=== PATIENT | female | born 1960 | race Caucasian/White ===

== ENCOUNTER 2018-02-03 13:25 | Emergency (ER) | payer MEDICARE, MEDICAID ==
[2018-02-03] MEDS ORDERED: Cyclobenzaprine 10 MG Tab PO ONE (13:26)
[2018-02-03 13:36] VITALS: BP 132/92
--- NOTE | 2018-02-03 13:44 | EDM.PDOC ---
ED HPI GENERAL MEDICAL PROBLEM - General Chief Complaint: Back Pain or Injury Stated Complaint: back pain s/p fall Time Seen by Provider: 02/03/18 13:35 Source of Information: Reports: Patient History Limitations: Reports: No Limitations - History of Present Illness INITIAL COMMENTS - FREE TEXT/NARRATIVE: was moving a couch into a storage unit and was walking backwards and didn't get her foot up high enough and it got caught on the step and she fell backwards onto her butt. She is having pain in the lumbar spine area. No pain or numbness or tingling noted down her legs. She denies pain to any other area of her back. No other injury when falling noted. Has not taken anything for the pain at this time. Onset: Today Location: Reports: Back Quality: Reports: Sharp, Stabbing Improves with: Reports: None Worsens with: Reports: Movement Associated Symptoms: Reports: No Other Symptoms Lower Back Pain Score (Numeric/FACES): 10 - Related Data Allergies Allergy/AdvReac Type Severity Reaction Status Date / Time No Known Allergies Allergy Verified 02/03/18 13:38 Home Meds: Home Meds Budesonide/Formoterol [Symbicort 160-4.5 MCG] 1 puff INH BID 01/31/15 [History] FLUoxetine [PROzac] 20 mg PO BID 01/31/15 [History] Fluticasone Propionate [Flonase] 2 inh NS DAILY 01/31/15 [History] Levalbuterol HCl [Xopenex] 1.25 mg NEB Q6H PRN 01/31/15 [History] Levothyroxine [Synthroid] 50 mcg PO ACBREAKFAST 01/31/15 [History] Omeprazole 20 mg PO DAILY 01/31/15 [History] Solifenacin Succinate [Vesicare] 10 mg PO DAILY 02/03/18 [History] buPROPion [Wellbutrin] 100 mg PO DAILY 02/03/18 [History] busPIRone HCl [Buspirone HCl] 7.5 mg PO BID 02/03/18 [History] traMADol HCl [Tramadol HCl] 1 - 2 tab PO Q6H PRN 02/03/18 [History] Past Medical History HEENT History: Reports: Hard of Hearing Psychiatric History: Reports: Depression Social & Family History - Tobacco Use Smoking Status *Q: Former Smoker Years of Tobacco use: 34 Month/Year Tobacco Last Used: October - Alcohol Use Days Per Week of Alcohol Use: 0 - Recreational Drug Use Recreational Drug Use: No ED ROS GENERAL - Review of Systems Review Of Systems: See Below Constitutional: Reports: No Symptoms HEENT: Reports: No Symptoms Cardiovascular: Reports: No Symptoms GI/Abdominal: Reports: No Symptoms Musculoskeletal: Reports: Back Pain Skin: Reports: No Symptoms Neurological: Reports: No Symptoms ED EXAM,LOWER BACK PAIN/INJURY - Physical Exam Exam: See Below Exam Limited By: No Limitations General Appearance: Alert, WD/WN, Moderate Distress Head: Atraumatic Neck: Normal Inspection, Supple, Non-Tender Respiratory/Chest: No Respiratory Distress, Lungs Clear, Normal Breath Sounds Cardiovascular: Regular Rate, Rhythm GI/Abdominal: Normal Bowel Sounds, Soft, Non-Tender Back Exam: Paraspinal Tenderness, Vertebral Tenderness (lumbar area.) Extremities: Normal Inspection, Normal Range of Motion, Non-Tender, No Pedal Edema, Normal Capillary Refill Neurological: Alert, Oriented x 3 Psychiatric: Normal Affect Skin Exam: Warm, Dry, Intact Course - Vital Signs Last Recorded V/S: Last Vital Signs Temp 96.3 F 02/03/18 13:31 Pulse 84 02/03/18 13:31 Resp 22 H 02/03/18 13:31 BP 132/92 H 02/03/18 13:31 Pulse Ox 99 02/03/18 13:31 - Orders/Labs/Meds Orders: Active Orders 24 hr Category Date Time Status Lumbar Spine 2 or 3V [CR] Stat Exams 02/03/18 13:39 Taken Meds: Medications Discontinued Medications Generic Name Dose Route Start Last Admin Trade Name Ayse PRN Reason Stop Dose Admin Cyclobenzaprine HCl 1 packet 02/03/18 14:15 02/03/18 14:19 Take Home: Cyclobenzaprine 10 Mg, 4 Tab Pack PO 02/03/18 14:16 1 packet ONETIME ONE Administration Fentanyl 50 mcg 02/03/18 13:52 02/03/18 14:10 Sublimaze IM 02/03/18 13:53 50 mcg ONETIME ONE Administration Orphenadrine Citrate 60 mg 02/03/18 14:00 02/03/18 14:05 Norflex IM 02/03/18 14:01 60 mg NOW ONE Administration - Re-Assessments/Exams Free Text/Narrative Re-Assessment/Exam: 02/03/18 14:12 Discussed xrays with pt. She has Tramadol at home from previous injury. Will use those for pain and will give muscle relaxants also. Departure - Departure Time of Disposition: 14:13 Disposition: Home, Self-Care 01 Condition: Good Clinical Impression: Traumatic compression fracture of L3 lumbar vertebra Qualifiers: Encounter type: initial encounter Fracture type: closed Qualified Code(s): S32.030A - Wedge compression fracture of third lumbar vertebra, initial encounter for closed fracture - Discharge Information Instructions: Muscle Strain, [id number], Back Pain, Adult, [id number] Referrals: Halie Carmona PA-C [Primary Care Provider] - Forms: ED Department Discharge Additional Instructions: Use the Tramadol that you have at home for pain as needed. Flexeril 10 mg twice a day for spasms as needed. You did get shot in the ER about 2 so do not repeat until this evening Will call in the morning after radiologist reads the image for further instructions. - Problem List & Annotations (1) Traumatic compression fracture of L3 lumbar vertebra SNOMED Code(s): 558714308 Code(s): S32.030A - WEDGE COMPRESSION FRACTURE OF THIRD LUMBAR VERTEBRA, INIT Status: Acute Priority: High Qualifiers: Encounter type: initial encounter Fracture type: closed Qualified Code(s) : S32.030A - Wedge compression fracture of third lumbar vertebra, initial encounter for closed fracture - Problem List Review Problem List Initiated/Reviewed/Updated: Yes - My Orders Last 24 Hours: My Active Orders 02/03/18 13:39 Lumbar Spine 2 or 3V [CR] Stat - Assessment/Plan Last 24 Hours: My Active Orders 02/03/18 13:39 Lumbar Spine 2 or 3V [CR] Stat
[2018-02-03] MEDS ORDERED: fentaNYL 100 MCG/2 ML SDV IM ONE (13:52)
[2018-02-03] MEDS ORDERED: Take Home: Cyclobenzaprine 10 MG Tab, 4 Tab Pack PO ONE (14:15)
== END 2018-02-03 14:25 | disposition home or self-care (01) ==
LOC: CC.ED 13:25
DX: S32.039A Unspecified fracture of third lumbar vertebra, initial encounter for closed fracture (principal); Z87.891 Personal history of nicotine dependence; Z79.899 Other long term (current) drug therapy; X50.3XXA Overexertion from repetitive movements, initial encounter; W18.39XA Other fall on same level, initial encounter
CPT/HCPCS: 72100; 96372; 99283; A9270-GY; J2360; J3010

== ENCOUNTER 2018-11-20 23:50 | Emergency (ER) | payer MEDICARE, MEDICAID ==
[2018-11-20 23:55] VITALS: BP 137/85
[2018-11-21] MEDS ORDERED: Lidocaine 1% 20 ML MDV ONE (00:03)
[2018-11-21] MEDS ORDERED: cefTRIAXone 1 GM Vial IM ONE (00:08)
[2018-11-21] MEDS ORDERED: Ketorolac 60 MG/2 ML SDV IM ONE (00:09)
[2018-11-21] MEDS ORDERED: Lidocaine 1% 30 ML SDV INJECT ONE (00:11)
--- NOTE | 2018-11-21 00:15 | EDM.PDOC ---
ED HPI GENERAL MEDICAL PROBLEM - General Chief Complaint: Upper Extremity Injury/Pain Stated Complaint: R)thumb pain and swelling Time Seen by Provider: 11/21/18 00:05 Source of Information: Reports: Patient History Limitations: Reports: No Limitations - History of Present Illness INITIAL COMMENTS - FREE TEXT/NARRATIVE: States that she pushed a hang nail back around her right thumb 2 days ago and now it is swollen and tender and throbs. Took tylenol earlier today and ths evening she took 2 tramadol and it still hurts. She presents to the ER for evaluation for this. She has not soaked it. No fever with it. Onset: Gradual Location: Reports: Other (right thumb) Quality: Reports: Throbbing Associated Symptoms: Reports: No Other Symptoms Treatments SECRET SERVICE AGENT: Reports: Acetaminophen Right Finger-Thumb Pain Score (Numeric/FACES): 9 - Related Data Allergies Allergy/AdvReac Type Severity Reaction Status Date / Time No Known Allergies Allergy Verified 11/20/18 23:55 Home Meds: Home Meds Budesonide/Formoterol [Symbicort 160-4.5 MCG] 1 puff INH BID 01/31/15 [History] FLUoxetine [PROzac] 20 mg PO BID 01/31/15 [History] Fluticasone Propionate [Flonase] 2 inh NS DAILY 01/31/15 [History] Levalbuterol HCl [Xopenex] 1.25 mg NEB Q6H PRN 01/31/15 [History] Levothyroxine [Synthroid] 50 mcg PO ACBREAKFAST 01/31/15 [History] Omeprazole 20 mg PO DAILY 01/31/15 [History] Solifenacin Succinate [Vesicare] 10 mg PO DAILY 02/03/18 [History] buPROPion [Wellbutrin] 100 mg PO DAILY 02/03/18 [History] busPIRone HCl [Buspirone HCl] 7.5 mg PO BID 02/03/18 [History] traMADol HCl [Tramadol HCl] 1 - 2 tab PO Q6H PRN 02/03/18 [History] Past Medical History HEENT History: Reports: Hard of Hearing Respiratory History: Reports: Asthma Psychiatric History: Reports: Depression - Past Surgical History Female Surgical History: Reports: Section, Hysterectomy Endocrine Surgical History: Reports: Thyroidectomy Social & Family History - Family History Family Medical History: Noncontributory - Tobacco Use Smoking Status *Q: Never Smoker - Caffeine Use Caffeine Use: Reports: Coffee - Recreational Drug Use Recreational Drug Use: No Review of Systems - Review of Systems Review Of Systems: See Below Constitutional: Denies: Chills, Fever Skin: Reports: Other (see HPI) ED EXAM, GENERAL - Physical Exam Exam: See Below Exam Limited By: No Limitations General Appearance: Alert, WD/WN Extremities: Other (right thumb is swollen and tender to touch. there is a pus collection noted on the lateral side of the thumb. No open or draining area at this time.) Neurological: Alert, Oriented Skin Exam: Warm, Dry, Intact Course - Vital Signs Last Recorded V/S: Last Vital Signs Temp 98.9 F 11/20/18 23:52 Pulse 81 11/20/18 23:52 Resp 20 11/20/18 23:52 BP 137/85 11/20/18 23:52 Pulse Ox 96 11/20/18 23:52 - Orders/Labs/Meds Orders: Active Orders 24 hr Category Date Time Status Ketorolac [Toradol] Med 11/21/18 00:09 Once 60 mg IM ONETIME ONE cefTRIAXone [Rocephin] Med 11/21/18 00:08 Once 1 gm IM ONETIME ONE Departure - Departure Time of Disposition: 00:15 Disposition: Home, Self-Care 01 Clinical Impression: Paronychia of finger of right hand - Discharge Information *PRESCRIPTION DRUG MONITORING PROGRAM REVIEWED*: Not Applicable *COPY OF PRESCRIPTION DRUG MONITORING REPORT IN PATIENT CAROLANN: Not Applicable Instructions: Paronychia Additional Instructions: soak in warm soap water or epsom salt to help with swelling and comfort tylenol or advil as needed for discomfort ice to finger for swelling - Problem List & Annotations (1) Paronychia of finger of right hand SNOMED Code(s): 027439173 Code(s): L03.011 - CELLULITIS OF RIGHT FINGER Status: Acute - Problem List Review Problem List Initiated/Reviewed/Updated: Yes - My Orders Last 24 Hours: My Active Orders 11/21/18 00:08 cefTRIAXone [Rocephin] 1 gm IM ONETIME ONE 11/21/18 00:09 Ketorolac [Toradol] 60 mg IM ONETIME ONE - Assessment/Plan Last 24 Hours: My Active Orders 11/21/18 00:08 cefTRIAXone [Rocephin] 1 gm IM ONETIME ONE 11/21/18 00:09 Ketorolac [Toradol] 60 mg IM ONETIME ONE
[2018-11-21] MEDS ORDERED: Lidocaine 1% 20 ML MDV INJECT ONE (00:22)
== END 2018-11-21 00:36 | disposition home or self-care (01) ==
LOC: CC.ED 23:50
DX: L03.011 Cellulitis of right finger (principal); F32.9 Major depressive disorder, single episode, unspecified; Z79.899 Other long term (current) drug therapy
CPT/HCPCS: 96372; 99282; 99283; J0696; J1885

== ENCOUNTER 2020-05-01 14:52 | Emergency (ER) | payer MEDICARE, MEDICAID ==
[2020-05-01] MEDS ORDERED: Ketorolac 10 MG Tab PO ONE (14:53)
[2020-05-01 14:56] VITALS: BP 115/71; PULSE 80
[2020-05-01] MEDS ORDERED: Ketorolac 60 MG/2 ML SDV IM ONE (15:25)
--- NOTE | 2020-05-01 15:31 | EDM.PDOC ---
ED HPI GENERAL MEDICAL PROBLEM - General Chief Complaint: General Stated Complaint: left wrist pain post carpel tunnel surgery Time Seen by Provider: 05/01/20 15:15 Source of Information: Reports: Patient History Limitations: Reports: No Limitations - History of Present Illness INITIAL COMMENTS - FREE TEXT/NARRATIVE: Patient presents today with increased left wrist pain following carpal tunnel surgery. She states she has had uncontrolled pain since surgery. Had switched her from [place] to percocet and is still not getting relief. States feels like wrist is broke as she has pain across the top of her wrist. Notes bruising and numbness in the palm of her hand. No redness. No swelling. Has not injured wrist. Had previous carpal tunnel on the right wrist and states had no complications nor pain like this. Did call down to [place] today but states was advised to be seen in ER as surgeon wasn't available. Onset: Gradual Duration: Day(s):, Getting Worse Location: Reports: Upper Extremity, Left Quality: Reports: Sharp, Throbbing Severity: Severe Improves with: Reports: Rest Worsens with: Reports: Movement Associated Symptoms: Reports: No Other Symptoms Treatments CYTOLOGY TECHNOLOGIST: Reports: NSAIDS, Other Medication(s) (percocet, norco) Left Lower Hand Pain Score (Numeric/FACES): 8 - Related Data Allergies Allergy/AdvReac Type Severity Reaction Status Date / Time No Known Allergies Allergy Verified 11/20/18 23:55 Home Meds: Home Meds Budesonide/Formoterol [Symbicort 160-4.5 MCG] 1 puff INH BID 01/31/15 [History] FLUoxetine [PROzac] 20 mg PO BID 01/31/15 [History] Fluticasone Propionate [Flonase] 2 inh NS DAILY 01/31/15 [History] Levalbuterol HCl [Xopenex] 1.25 mg NEB Q6H PRN 01/31/15 [History] Levothyroxine [Synthroid] 50 mcg PO ACBREAKFAST 01/31/15 [History] Omeprazole 20 mg PO DAILY 01/31/15 [History] buPROPion [Wellbutrin] 100 mg PO DAILY 02/03/18 [History] busPIRone HCl [Buspirone HCl] 7.5 mg PO BID 02/03/18 [History] Past Medical History HEENT History: Reports: Hard of Hearing Other HEENT History: wears bilateral hearing aides Respiratory History: Reports: Asthma Psychiatric History: Reports: Depression Oncologic (Cancer) History: Reports: Other (See Below) Other Oncologic History: hx of breast cancer-lumpectomy and lymph nodes removed along with radiation treatment Dermatologic History: Reports: Eczema Other Dermatologic History: back of neck - Past Surgical History Female Surgical History: Reports: Section, Hysterectomy Endocrine Surgical History: Reports: Thyroidectomy Oncologic Surgical History: Reports: Biopsy of Breast, Lumpectomy Social & Family History - Family History Family Medical History: Noncontributory - Tobacco Use Smoking Status *Q: Former Smoker Used Tobacco, but Quit: Yes Month/Year Tobacco Last Used: 2 - Caffeine Use Caffeine Use: Reports: Coffee - Recreational Drug Use Recreational Drug Use: No ED ROS GENERAL - Review of Systems Review Of Systems: Comprehensive ROS is negative, except as noted in HPI. ED EXAM, GENERAL - Physical Exam Exam: See Below Exam Limited By: No Limitations General Appearance: Alert, WD/WN, No Apparent Distress Extremities: Other (left wrist incision is clean and dry. Sutures intact. No erythema or swelling. Does have ecchymosis to the palm of her hand. Pain with range of motion of her wrist. ). No: Joint Swelling, Increased Warmth Skin Exam: Warm, Dry, Ecchymosis, Wound/Incision. No: Erythema Course - Vital Signs Last Recorded V/S: Last Vital Signs Temp 98.7 F 05/01/20 14:54 Pulse 80 05/01/20 14:54 Resp 20 05/01/20 14:54 BP 115/71 05/01/20 14:54 Pulse Ox - Orders/Labs/Meds Orders: Active Orders 24 hr Category Date Time Status Wrist Comp Min 3V Lt [CR] Stat Exams 05/01/20 15:26 Ordered Meds: Medications Discontinued Medications Generic Name Dose Route Start Last Admin Trade Name Freq PRN Reason Stop Dose Admin Ketorolac Tromethamine 60 mg 05/01/20 15:25 Toradol IM 05/01/20 15:26 ONETIME ONE - Re-Assessments/Exams Free Text/Narrative Re-Assessment/Exam: 05/01/20 15:33 Xrays are negative. Discussed with patient. Departure - Departure Time of Disposition: 15:34 Disposition: Home, Self-Care 01 Condition: Good Clinical Impression: S/P carpal tunnel release - Discharge Information *PRESCRIPTION DRUG MONITORING PROGRAM REVIEWED*: No *COPY OF PRESCRIPTION DRUG MONITORING REPORT IN PATIENT CAROLANN: No Instructions: Open Carpal Tunnel Release, Care After, How to Use Cold Therapy, [id number] Forms: ED Department Discharge Additional Instructions: 1. Rest 2. Ice to the area as needed 3. Elevate as needed 4. Alternate toradol tablets with percocet every 3 hours for the pain 5. Contact Dr. Card's office on Sunday am for recheck Sepsis Event Note (ED) - Evaluation Sepsis Screening Result: No Definite Risk - Focused Exam Vital Signs: Vital Signs Temp Pulse Resp BP 05/01/20 14:54 98.7 F 80 20 115/71 - My Orders Last 24 Hours: My Active Orders 05/01/20 15:26 Wrist Comp Min 3V Lt [CR] Stat - Assessment/Plan Last 24 Hours: My Active Orders 05/01/20 15:26 Wrist Comp Min 3V Lt [CR] Stat
[2020-05-01] MEDS ORDERED: Take Home: Ketorolac 10 MG Tab, 4 Tab Pack PO ONE (15:33)
== END 2020-05-01 15:42 | disposition home or self-care (01) ==
LOC: CC.ED 14:52
DX: M96.840 Postprocedural hematoma of a musculoskeletal structure following a musculoskeletal system procedure (principal); J45.909 Unspecified asthma, uncomplicated; F32.9 Major depressive disorder, single episode, unspecified; Z90.710 Acquired absence of both cervix and uterus; Z98.890 Other specified postprocedural states; Z87.891 Personal history of nicotine dependence; Z79.899 Other long term (current) drug therapy
CPT/HCPCS: 73110; 96372; 99283; A9270; J1885

== ENCOUNTER → 2020-08-06 | Day surgery (SDC) | payer MEDICARE, MEDICAID ==
[~2020-08-06] MED LIST: Ketamine 200 MG/20 ML MDV ONE; Lactated Ringers 1,000 ML IV SCH; Midazolam 1 MG/ML 2 ML SDV ONE; Phenylephrine 1% 10 MG/ML SDV ONE; Propofol 200 MG/20 ML SDV ONE; fentaNYL 100 MCG/2 ML SDV ONE
[2020-08-06 11:07] VITALS: BP 116/55; PULSE 81
--- NOTE | 2020-08-06 12:42 | OR ---
DATE OF OPERATION: 08/06/2020 PREOPERATIVE DIAGNOSIS: SCREENING COLONOSCOPY. POSTOPERATIVE DIAGNOSIS: SCREENING COLONOSCOPY. SURGEON: Jero Soares MD PROCEDURE: FULL-LENGTH COLONOSCOPY WITH SNARE POLYPECTOMY X1. ANESTHESIA: MAC. COMPLICATIONS: None. SPECIMEN: Tubular adenoma, hepatic flexure, approximately 0.5 cm. FINDINGS: 1. Full-length colonoscopy. 2. Markedly tortuous colon. 3. Tubular adenoma, hepatic flexure, 0.5 cm. 4. Mild sigmoid diverticulosis. RECOMMENDATIONS: Followup colonoscopy in 5 years. INDICATIONS: The patient was due for screening colonoscopy, sent by Halie Carmona for such. DESCRIPTION OF PROCEDURE: The patient was prepped and draped, placed in the left lateral decubitus position. A lubricated Olympus colonoscope was inserted and ultimately advanced to the cecum. The patient is very tortuous and a challenging scope. We were able to get deep into the right colon. There was a lot of stool, we were able to irrigate and suction. We were able to get down into the cecal pouch and get a good visualization. Upon withdrawal, cecum and ascending colon appeared benign. The patient did have a lot of stool left in the right and transverse colon, but the sigmoid and left side appeared fine. Just at the hepatic flexure, the patient had a stalked tubular adenoma, removed with a snare and suctioned into polyp trap #1 without difficulty. The rest of the transverse and descending colons were unremarkable. The patient had scattered diverticular disease throughout the sigmoid area, very mild in severity. No inflammatory changes. There were no further polyps, masses, ulceration, or bleeding sites. No vascular abnormalities or signs of colitis. The rectal vault appeared benign. Retroflexion of the scope in the rectum showed some perianal skin tags, otherwise benign. Air was then suctioned. Scope removed without complication. SUSAN/GRACIE /[id number]
== END ==
LOC: CC.SDS 09:27
PROVIDERS: ATTEND Family Medicine
DX: Z12.11 Encounter for screening for malignant neoplasm of colon (principal); K63.5 Polyp of colon; K57.30 Diverticulosis of large intestine without perforation or abscess without bleeding; Q43.8 Other specified congenital malformations of intestine; F41.9 Anxiety disorder, unspecified; F32.9 Major depressive disorder, single episode, unspecified; K21.9 Gastro-esophageal reflux disease without esophagitis; E78.5 Hyperlipidemia, unspecified; E03.9 Hypothyroidism, unspecified; M81.0 Age-related osteoporosis without current pathological fracture; Z79.890 Hormone replacement therapy; Z98.890 Other specified postprocedural states; Z87.891 Personal history of nicotine dependence
CPT/HCPCS: J2250; J2370; J2704; J3010; J7120

== ENCOUNTER 2024-02-24 10:03 | Emergency (ER) | payer MEDICARE, MEDICAID ==
[2024-02-24 10:18] VITALS: BP 114/75; PULSE 67
[2024-02-24] MEDS: Diphtheria,Pertussis(Acell),Tetanus Vaccine 0.5 ML Syringe IM ONE (10:41)
[2024-02-24] MEDS: Take Home: Amoxicillin/Clavulanate K 875-125 MG Tab, 2 Tab Pack PO ONE (10:41)
== END 2024-02-24 10:45 | disposition home or self-care (01) ==
LOC: CC.ED 10:03
DX: S61.250A Open bite of right index finger without damage to nail, initial encounter (principal); E05.90 Thyrotoxicosis, unspecified without thyrotoxic crisis or storm; Z79.899 Other long term (current) drug therapy; Z79.890 Hormone replacement therapy; Z90.710 Acquired absence of both cervix and uterus; Z23 Encounter for immunization; W54.0XXA Bitten by dog, initial encounter
CPT/HCPCS: 90471; 90715; 99283; A9270